=== PATIENT | female | born 1970 | race Caucasian/White ===

== ENCOUNTER 2021-03-20 21:07 | Emergency (ER) | payer BC, OTHER ==
[2021-03-20 21:58] LABS: HEMOGLOBIN 13.2 gm/dl (12.3-15.3); RED BLOOD COUNT 4.16 M/UL (4.00-5.10); WHITE BLOOD COUNT 10.4 K/UL (4.5-11.0)
[2021-03-20 22:39] LABS: BUN/CREATININE RATIO 12 (0-10)
[2021-03-21] MEDS ORDERED: PREDNISONE20 MG PO (02:13)
== END 2021-03-21 02:30 | disposition home or self-care (01) ==
LOC: ER1 21:07
PROVIDERS: Emergency Medicine
DX: R07.89 Other chest pain (principal); R20.0 Anesthesia of skin; M54.12 Radiculopathy, cervical region; E03.9 Hypothyroidism, unspecified
CPT/HCPCS: 71045; 72125; 80053; 82550; 82553; 83690; 83874; 84439; 84443; 84484; 85025; 93005; 99285